=== PATIENT | male | born 1955 | race Caucasian/White ===

== ENCOUNTER 2018-08-22 20:12 | Inpatient (IN) | payer MEDICAID ==
[~2018-08-22] VITALS: Ht 180.3 cm; Wt 72.6 kg
[2018-08-22 20:58] LABS: BASOPHIL % 0.1 % (0-2); PLATELET COUNT 341 x10^3mcL (130-400); RED CELL DISTRIBUTION WIDTH 14.4 % (11.5-14.5)
[2018-08-22 21:05] LABS: CALCIUM 10.1 mg/dL (8.5-10.1); CHLORIDE SERUM 100 mmol/L (98-107); CREATININE SERUM 2.8 mg/dL (0.7-1.3); GFR1 24 mL/min; GLUCOSE SERUM 81 mg/dL (74-106); SODIUM SERUM 140 mmol/L (136-145)
[2018-08-22 21:09] LABS: ALBUMIN 3.8 g/dL (3.4-5.0); ALKALINE PHOSPHATASE 96 U/L (46-116); ALT/SGPT 125 U/L (16-63); AST/SGOT 331 U/L (15-37); BILIRUBIN TOTAL 1.8 mg/dL (0.20-1.00); MAGNESIUM 1.8 mg/dL (1.8-2.4); TOTAL PROTEIN, SERUM 7.7 g/dL (6.4-8.2)
[2018-08-23 02:45] VITALS: BP 135/93
[2018-08-23 05:58] LABS: UA SPECIFIC GRAVITY >=1.030 (1.005-1.035); microscopic required? YES; urine erythrocyte 3+ (NEGATIVE)
[2018-08-23 06:01] VITALS: BP 113/64
[2018-08-23 06:17] LABS: AMPHETAMINE QUAL UR POSITIVE (See below)
[2018-08-23 06:28] LABS: BASOPHIL % 0.6 % (0-2); PLATELET COUNT 294 x10^3mcL (130-400); RED CELL DISTRIBUTION WIDTH 14.3 % (11.5-14.5)
[2018-08-23 06:54] LABS: CARBON DIOXIDE 24.4 mmol/L (21-32); CREATININE SERUM 1.9 mg/dL (0.7-1.3); MAGNESIUM 1.8 mg/dL (1.8-2.4); PHOSPHOROUS 4.3 mg/dL (2.5-4.9); POTASSIUM SERUM 4.1 mmol/L (3.5-5.1)
[2018-08-23 08:02] VITALS: BP 104/64
[2018-08-23 11:52] VITALS: BP 120/70
[2018-08-23 17:02] VITALS: BP 104/67
[2018-08-23 21:02] VITALS: BP 106/63
[2018-08-24 05:07] VITALS: BP 109/64
[2018-08-24 06:11] LABS: BASOPHIL % 0.3 % (0-2); PLATELET COUNT 297 x10^3mcL (130-400); RED CELL DISTRIBUTION WIDTH 14.4 % (11.5-14.5)
[2018-08-24 06:41] LABS: CALCIUM 9.2 mg/dL (8.5-10.1); CARBON DIOXIDE 25.2 mmol/L (21-32); CHLORIDE SERUM 109 mmol/L (98-107); GFR1 > 60 mL/min; GLUCOSE SERUM 101 mg/dL (74-106); MAGNESIUM 1.9 mg/dL (1.8-2.4); PHOSPHOROUS 2.2 mg/dL (2.5-4.9); POTASSIUM SERUM 4.9 mmol/L (3.5-5.1); SODIUM SERUM 141 mmol/L (136-145)
[2018-08-24 09:39] VITALS: BP 121/61
[2018-08-24 10:07] LABS: BILIRUBIN DIRECT 0.14 mg/dL (0.0-0.2); BILIRUBIN TOTAL 0.4 mg/dL (0.20-1.00); TOTAL PROTEIN, SERUM 6.3 g/dL (6.4-8.2)
[2018-08-24 10:08] LABS: ALBUMIN 2.8 g/dL (3.4-5.0)
[2018-08-24 13:17] VITALS: BP 125/74
[2018-08-24] MEDS ORDERED: LEV500 PO (13:29)
[2018-08-24 14:12] VITALS: BP 125/74
[2018-08-24] MEDS ORDERED: HIB480 TOP (15:06)
[2018-08-24] MEDS ORDERED: BACTROBAN21 (15:06)
[2018-08-25 08:24] VITALS: Ht 180.3 cm; Wt 72.6 kg
== END 2018-08-24 16:32 | disposition home or self-care (01) | DRG 812 ==
LOC: ED 20:12 → DU 08-23 00:38
PROVIDERS: Emergency Medicine; ADMIT General Practice
DX: T43.621A Poisoning by amphetamines, accidental (unintentional), initial encounter (principal); N17.0 Acute kidney failure with tubular necrosis; G92 Toxic encephalopathy; S80.212A Abrasion, left knee, initial encounter; S80.211A Abrasion, right knee, initial encounter; M79.642 Pain in left hand; E86.0 Dehydration; G90.9 Disorder of the autonomic nervous system, unspecified; K80.20 Calculus of gallbladder without cholecystitis without obstruction; F20.9 Schizophrenia, unspecified; N39.0 Urinary tract infection, site not specified; F15.10 Other stimulant abuse, uncomplicated; F03.90 Unspecified dementia, unspecified severity, without behavioral disturbance, psychotic disturbance, mood disturbance, and anxiety; R74.0 Nonspecific elevation of levels of transaminase and lactic acid dehydrogenase [LDH]; Z68.22 Body mass index [BMI] 22.0-22.9, adult; V04.10XA Pedestrian on foot injured in collision with heavy transport vehicle or bus in traffic accident, initial encounter; Y92.410 Unspecified street and highway as the place of occurrence of the external cause
CPT/HCPCS: 97112-GP; G0480; J0696; J1885; J7030; Q0092